=== PATIENT | female | born 1995 | race Caucasian/White ===

== ENCOUNTER → 2016-06-24 | Outpatient (CLI) | payer OTHER ==
[~2016-06-24] MED LIST: CLR10 PO; ETONMIS VAGRING
[2016-06-29 03:24] LABS: CHLAMYDIA TRACH RNA*** NOT DETECTED (NOT DETECTED); GC (NEIS GONORRHOEAE)RNA** NOT DETECTED (NOT DETECTED)
== END | disposition home or self-care (01) ==
LOC: C.LABSPEC 12:44
PROVIDERS: ATTEND Obstetrics & Gynecology
DX: N76.0 Acute vaginitis (principal)

== ENCOUNTER 2016-08-19 19:57 | Emergency (ER) | payer OTHER ==
[~2016-08-19] VITALS: Ht 160 cm; Wt 60.4 kg
[2016-08-19 20:15] VITALS: TEMP 37.4; Ht 160 cm; Wt 60.4 kg
[2016-08-19] MEDS ORDERED: ETONMIS VAGRING (21:04)
[2016-08-19] MEDS ORDERED: CLR10 PO (21:04)
[2016-08-19 21:12] LABS: HEMATOCRIT 44.3 % (37-47); RED BLOOD COUNT 4.92 M/uL (4.2-5.4); WHITE BLOOD COUNT 6.44 K/uL (4.8-10.8)
[2016-08-19 21:13] LABS: BASO % 0.3 %; BASO ABS # 0.02 K/uL (0-0.2); COMPLETE YES; EOS % 0.9 %; IG% 0.2 %; LYMPH % 44.4 %; LYMPH ABS # 2.86 K/uL (1.2-3.4); MEAN CORPUSCULAR HEMOGLOBIN 30.9 pg (25-34); MEAN CORPUSCULAR HGB CONC 34.3 g/dl (32-36); MEAN PLATELET VOLUME 9.1 fL (7.4-10.4); MONO % 6.1 %; NEUT % 48.1 %; PLATELET COUNT 284 K/uL (130-400)
[2016-08-19 21:20] LABS: INR 0.9 (0.9-1.1); PROTHROMBIN TIME (PATIENT) 10.1 SECONDS (9.0-12.0)
[2016-08-19 21:29] LABS: ALT/SGPT 29 U/L (12-78); BLOOD UREA NITROGEN 13 mg/dl (7-18); BUN/CREATININE RATIO 13.9 (10-20); CALCIUM 9.4 mg/dl (8.5-10.1); CARBON DIOXIDE 26 mmol/L (21-32); CHLORIDE 109 mmol/L (98-107); CREATININE 0.94 mg/dl (0.60-1.20); GLUCOSE 91 mg/dl (70-99); POTASSIUM 3.7 mmol/L (3.5-5.1); SODIUM 142 mmol/L (136-145)
[2016-08-19 21:32] LABS: ALKALINE PHOSPHATASE 93 U/L (45-117); AST/SGOT 25 U/L (15-37); RHEUMATOID FACTOR < 10.0 U/mL (0-15)
--- NOTE | 2016-08-19 22:20 | DIAGNOSTIC IMAGING REPORT ---
VENOUS DOPPLER LEFT ARM UPPER EXTREMITY VENOUS DOPPLER HISTORY: Pain. Edema. left arm numbness eval for dv COMPARISON STUDY: None. FINDINGS: The internal jugular vein is patent. There is normal flow within the subclavian vein. There is normal flow and compressibility within the left axillary, basilic, brachial, radial, ulnar, and visualized cephalic veins. IMPRESSION: No DVT within the upper extremity. Electronically signed by: Joon Da Silva M.D. 08/19/2016 10:19 PM Dictated Date/Time: 08/19/2016 10:19 PM
[2016-08-19 23:00] VITALS: BP 105/61; PULSE 63; O2SAT 98
--- NOTE | 2016-08-19 23:24 | EMERGENCY ROOM VISIT NOTE ---
History Report prepared by Zohra: Arron Willoughby Under the Supervision of: Dr. Johnson Jeffers M.D. First contact with patient: 20:26 Chief Complaint: ARM PAIN Stated Complaint: NUMBNESS IN LEFT HAND & ARM History of Present Illness The patient is a 21 year old female who presents to the Emergency Room with complaints of persistent left arm numbness since approximately 1700 today. The patient notes a tingling sensation in the left arm. She also had some symptoms in her right hand. The sensation is improved when her arm is lowered. The patient's right arm was also tingling earlier today, however it was not as bad as the left arm and resolved on its own. She notes that her left pinky went completely numb earlier which improved. The patient's father thought that her hands looked blue earlier this evening. The patient denies any arm weakness or swelling. She denies any numbness of the legs. The patient had a similar numbness sensation in her left arm after waking up one month ago. She notes that she was sleeping on her right side at that time. The patient had neck pain earlier today when she was at work but thinks that this is from looking at her monitors at work. She also had a mild headache earlier today that resolved. The patient has had a Nuva ring for 2 years. She is not a smoker. She denies any medical problems. The patient denies any trouble with speech, ambulation, or visual changes. There is no known family history of Raynaud's. Source of History: patient, parent Onset: 1700 today Position: arm (left) Quality: numbness Timing: other (persistent) Modifying Factors (Relieving): other (lowering arms) Associated Symptoms: + headache, + neck pain, No weakness Review of Systems See HPI for pertinent positives & negatives. A total of 10 systems reviewed and were otherwise negative. Past Medical & Surgical Medical Problems: (1) No known health problems Family History No pertinent family history Social History Smoking Status: Never Smoker Occupation Status: employed Current/Historical Medications Scheduled Etonogestrel/Ethinyl Estradiol (Nuvaring), 1 EA VAGRING MONTHLY Loratadine (Claritin), 10 MG PO DAILY Allergies Coded Allergies: Peanut (Unverified Allergy, Unknown, HIVES, 08/19/16) Physical Exam Vital Signs Date Time Temp Pulse Resp B/P Pulse Ox O2 Delivery O2 Flow Rate FiO2 08/19/16 23:00 63 16 105/61 98 08/19/16 20:15 37.4 106 17 128/82 100 Room Air Physical Exam Constitutional: Vital signs reviewed. Eyes: Pupils are equal round reactive to light. Conjunctiva are noninjected. ENT: Pharynx is clear without erythema or exudate. Mucous membranes are moist. Neck supple without meningeal signs. No midline tenderness to the cervical spine. Respiratory: Clear to auscultation bilaterally. Breath sounds are equal bilaterally. Cardiovascular: Regular rate and rhythm. No rubs or gallops. GI: Soft, nondistended and nontender. Bowel sounds are present. Musculoskeletal: The fingers are cold to touch in both hands. Distal pulses are 2+ bilaterally. No significant cyanosis to the fingers. No swelling to the extremities. Integumentary: No cyanosis. Neurological: The patient is awake and alert. No focal deficits. Motor and sensation are intact throughout the upper extremities. Psychiatric: Normal affect. Medical Decision & Procedures ER Provider Diagnostic Interpretation: Radiology results as stated below per my review and the radiologist's interpretation: VENOUS DOPPLER LEFT ARM UPPER EXTREMITY VENOUS DOPPLER HISTORY: Pain. Edema. left arm numbness eval for dv COMPARISON STUDY: None. FINDINGS: The internal jugular vein is patent. There is normal flow within the subclavian vein. There is normal flow and compressibility within the left axillary, basilic, brachial, radial, ulnar, and visualized cephalic veins. IMPRESSION: No DVT within the upper extremity. Electronically signed by: Joon Da Silva M.D. 08/19/2016 10:19 PM Dictated Date/Time: 08/19/2016 10:19 PM Laboratory Results 08/19/16 20:55 Red Blood Count 4.92, Mean Corpuscular Volume 90.0, Mean Corpuscular Hemoglobin 30.9, Mean Corpuscular Hemoglobin Concent 34.3, Mean Platelet Volume 9.1, Neutrophils (%) (Auto) 48.1, Lymphocytes (%) (Auto) 44.4, Monocytes (%) (Auto) 6.1, Eosinophils (%) (Auto) 0.9, Basophils (%) (Auto) 0.3, Neutrophils # (Auto) 3.10, Lymphocytes # (Auto) 2.86, Monocytes # (Auto) 0.39, Eosinophils # (Auto) 0.06, Basophils # (Auto) 0.02 08/19/16 20:55 Test 08/19/16 20:55 White Blood Count 6.44 K/uL (4.8-10.8) Red Blood Count 4.92 M/uL (4.2-5.4) Hemoglobin 15.2 g/dL (12.0-16.0) Hematocrit 44.3 % (37-47) Mean Corpuscular Volume 90.0 fL (80-100) Mean Corpuscular Hemoglobin 30.9 pg (25-34) Mean Corpuscular Hemoglobin Concent 34.3 g/dl (32-36) Platelet Count 284 K/uL (130-400) Mean Platelet Volume 9.1 fL (7.4-10.4) Neutrophils (%) (Auto) 48.1 % Lymphocytes (%) (Auto) 44.4 % Monocytes (%) (Auto) 6.1 % Eosinophils (%) (Auto) 0.9 % Basophils (%) (Auto) 0.3 % Neutrophils # (Auto) 3.10 K/uL (1.4-6.5) Lymphocytes # (Auto) 2.86 K/uL (1.2-3.4) Monocytes # (Auto) 0.39 K/uL (0.11-0.59) Eosinophils # (Auto) 0.06 K/uL (0-0.5) Basophils # (Auto) 0.02 K/uL (0-0.2) RDW Standard Deviation 43.5 fL (36.4-46.3) RDW Coefficient of Variation 13.3 % (11.5-14.5) Immature Granulocyte % (Auto) 0.2 % Immature Granulocyte # (Auto) 0.01 K/uL (0.00-0.02) Prothrombin Time 10.1 SECONDS (9.0-12.0) Prothromb Time International Ratio 0.9 (0.9-1.1) Activated Partial Thromboplast Time 26.2 SECONDS (21.0-31.0) Partial Thromboplastin Ratio 1.0 Anion Gap 7.0 mmol/L (3-11) Est Creatinine Clear Calc Drug Dose 77.0 ml/min Estimated GFR () 99.1 Estimated GFR (Non- 85.5 BUN/Creatinine Ratio 13.9 (10-20) Calcium Level 9.4 mg/dl (8.5-10.1) Total Bilirubin 0.3 mg/dl (0.2-1) Direct Bilirubin < 0.1 mg/dl (0-0.2) Aspartate Amino Transf (AST/SGOT) 25 U/L (15-37) Alanine Aminotransferase (ALT/SGPT) 29 U/L (12-78) Alkaline Phosphatase 93 U/L (45-117) Total Protein 8.1 gm/dl (6.4-8.2) Albumin 4.3 gm/dl (3.4-5.0) Rheumatoid Factor < 10.0 U/mL (0-15) Laboratory results as reviewed by me. ED Course 2027: The patient was evaluated in room B8. A complete history and physical exam was performed. 2224: The patient is feeling much better and does not have any numbness at this time. Discussed the results with her and her parents and recommended follow up with her primary doctor or possibly a brand activation manager. Medical Decision This is a 21-year-old female who presents with numbness and tingling to her left arm and right hand with discoloration. Differential diagnosis includes Raynaud's phenomena, DVT, cervical radiculopathy, SLE, vasculitis, metabolic derangement. I did perform a limited focused review of portions of the patient' s old chart on the electronic medical record. The patient has had no recent pertinent visits to this hospital. I did evaluate the patient as noted above. The patient is presenting with paresthesias to her left arm as well as her right hand. She had some discoloration consistent with cyanosis by her description as well as coldness to the hands. Her symptoms seem consistent with Raynaud's phenomenon. She has no medical issues. On examination she is completely neurologically intact and has no signs of CVA. Her fingers are cold. IV access was established. I did order and review the patient's blood work as noted in the electronic medical record. Her labs are unremarkable. RENETTA is pending. I did order a Doppler ultrasound of the left upper extremity to evaluate for possible DVT. I did review the images myself as well as the radiology report as described above. There is no evidence of DVT. I did reassess the patient. She is feeling better and is asymptomatic. I did recommend close follow up with a regular physician as well as possibly a brand activation manager for further evaluation of her symptoms. I did discuss the results with the patient and her parents. She was discharged in good condition and given return instructions as outlined below. Impression Primary Impression: Cyanosis of fingertip Additional Impression: Paresthesias Scribe Attestation The scribe's documentation has been prepared under my direct and personally reviewed by me in its entirety. I confirm that the note above accurately reflects all work, treatment, procedures, and medical decision making performed by me. Departure Information Dispostion Home / Self-Care Referrals No Doctor, Assigned (PCP) Forms HOME CARE DOCUMENTATION FORM, IMPORTANT VISIT INFORMATION Patient Instructions ED Paraesthesias, My [facility] Additional Instructions You have been examined and treated today on an emergency basis only. This is not a substitute for, or an effort to provide, complete comprehensive medical care. It is impossible to recognize and treat all injuries or illnesses in a single emergency department visit. It is therefore important that you follow up closely with a regular physician and brand activation manager. Call as soon as possible for an appointment. Return for worsening symptoms or if you develop trouble with your speech, gait, vision, weakness in your extremities, chest pain or any other concerning symptoms. Avoid caffeine or stimulants. Problem Qualifiers
== END 2016-08-19 23:01 | disposition home or self-care (01) ==
LOC: C.EDB 19:59
DX: R23.0 Cyanosis (principal); R20.2 Paresthesia of skin

== ENCOUNTER → 2016-08-26 | Outpatient (CLI) | payer OTHER ==
[2016-08-26 09:56] LABS: C-REACTIVE PROTEIN 0.29 mg/dl (0-0.29); THYROID STIMULATING HORMONE 2.25 uIu/ml (0.300-4.500)
[2016-08-26 11:15] LABS: LYME DISEASE AB IGG NEG (NEG); LYME DISEASE AB IGM NEG (NEG)
[2016-08-27 03:43] LABS: RAPID PLASMA REAGIN NONREACTIVE (NONREACT)
== END | disposition home or self-care (01) ==
LOC: C.LAB1850 07:17
PROVIDERS: ATTEND Nurse Practitioner Adult Health
DX: R20.2 Paresthesia of skin (principal)

== ENCOUNTER → 2016-11-01 | Outpatient (CLI) | payer OTHER | END | disposition home or self-care (01) | LOC: C.LABSPEC 17:48 | PROVIDERS: ATTEND Physician Assistant | DX: N94.89 Other specified conditions associated with female genital organs and menstrual cycle (principal) ==

== ENCOUNTER → 2017-01-23 | Outpatient (CLI) | payer OTHER | END | disposition home or self-care (01) | LOC: C.LABSPEC 17:50 | PROVIDERS: ATTEND Nurse Practitioner Family | DX: L03.90 Cellulitis, unspecified (principal) ==

== ENCOUNTER → 2017-01-31 | Outpatient (CLI) | payer BC ==
[2017-02-03 00:08] LABS: CHLAMYDIA TRACH RNA*** NOT DETECTED (NOT DETECTED); GC (NEIS GONORRHOEAE)RNA** NOT DETECTED (NOT DETECTED)
== END | disposition home or self-care (01) ==
LOC: C.LABSPEC 13:53
PROVIDERS: ATTEND Physician Assistant
DX: Z01.419 Encounter for gynecological examination (general) (routine) without abnormal findings (principal)

== ENCOUNTER → 2017-01-31 | Outpatient (CLI) | payer BC | END | disposition home or self-care (01) | LOC: C.PAPS 15:17 | PROVIDERS: ATTEND Physician Assistant | DX: Z01.419 Encounter for gynecological examination (general) (routine) without abnormal findings (principal); R87.610 Atypical squamous cells of undetermined significance on cytologic smear of cervix (ASC-US) ==